=== PATIENT | female | born 1995 | race Caucasian/White ===

== ENCOUNTER 2017-08-18 09:20 | Emergency (ER) | payer MEDICAID, OTHER ==
[2017-08-18 11:11] LABS: URINE BLOOD (Dip) POC Negative (NEGATIVE); URINE GLUCOSE (Dip) POC Negative (NEGATIVE); URINE KETONES (Dip) POC Trace (NEGATIVE); URINE LEUKOCYTE EST (Dip) POC 1+ (NEGATIVE); URINE NITRITE (Dip) POC Negative (NEGATIVE); URINE TOTAL PROTEIN POC Negative (NEGATIVE)
[2017-08-18] MEDS: IBUPROFEN 600 MG TAB PO (11:13)
[2017-08-18 11:35] LABS: URINE BLOOD (Dip) POC Negative (NEGATIVE); URINE GLUCOSE (Dip) POC Negative (NEGATIVE); URINE KETONES (Dip) POC Negative (NEGATIVE); URINE LEUKOCYTE EST (Dip) POC 1+ (NEGATIVE); URINE NITRITE (Dip) POC Negative (NEGATIVE); URINE TOTAL PROTEIN POC Negative (NEGATIVE)
== END 2017-08-18 13:25 | disposition home or self-care (01) ==
LOC: FTE 09:20
DX: N39.0 Urinary tract infection, site not specified (principal)
CPT/HCPCS: 76856; 81003; 81025; 99284-25

== ENCOUNTER 2018-07-18 18:25 | Outpatient (CLI) | payer OTHER, MEDICAID | END 2018-07-18 22:39 | disposition home or self-care (01) | LOC: OBT 18:25 → L-D 18:26 → OBT 22:39 | DX: O47.1 False labor at or after 37 completed weeks of gestation (principal); Z3A.38 38 weeks gestation of pregnancy | CPT/HCPCS: 76818 ==

== ENCOUNTER 2018-07-19 05:31 | Inpatient (IN) | payer OTHER ==
[2018-07-19 07:13] LABS: ADD UMIC YES; UR ASCORBIC ACID NEGATIVE (NEGATIVE); UR BACTERIA FEW /HPF (NONE SEEN); UR BILIRUBIN (Dip) NEGATIVE (NEGATIVE); UR BLOOD (Dip) NEGATIVE (NEGATIVE); UR CLARITY CLEAR (CLEAR); UR COLOR YELLOW (YELLOW); UR GLUCOSE (Dip) NEGATIVE (NEGATIVE); UR KETONES (Dip) NEGATIVE (NEGATIVE); UR LEUKOCYTE ESTERASE (Dip) 1+ Leu/ul (NEGATIVE); UR NITRITE (Dip) NEGATIVE (NEGATIVE); UR RBC 0 /HPF (0-5); UR SPECIFIC GRAVITY (Dip) 1.008 (1.003-1.030); UR TOTAL PROTEIN (Dip) NEGATIVE (NEGATIVE); UR UROBILINOGEN (Dip) NEGATIVE (NEGATIVE); UR WBC 6 /HPF (0-5)
[2018-07-19 07:44] LABS: AMPHETAMINE/METHAMPHETAMINE Negative (NEGATIVE); BARBITURATES Negative (NEGATIVE); BENZODIAZEPINES Negative (NEGATIVE); COCAINE Negative (NEGATIVE); OPIATES Negative (NEGATIVE)
[2018-07-19 07:49] LABS: CANNABINOIDS Positive (NEGATIVE)
[2018-07-19] MEDS ORDERED: MISOPROSTOL 200 MCG TAB PR (10:00)
[2018-07-19] MEDS ORDERED: IBUPROFEN 600 MG TAB PO (10:00)
[2018-07-19] MEDS ORDERED: OXYTOCIN 30 UNITS/LR 500 ML IV ×3 (10:00)
[2018-07-19] MEDS ORDERED: CARBOPROST 250 MCG INJ IM (10:00)
[2018-07-19] MEDS ORDERED: METHYLERGONOVINE 0.2 MG INJ IM (10:00)
[2018-07-19] MEDS ORDERED: BUTORPHANOL 2 MG INJ IV (10:00)
[2018-07-19] MEDS ORDERED: LIDOCAINE 1% (MPF) 30 ML INJ INJ (10:00)
[2018-07-19 11:45] LABS: ADD MAN DIFF? NO
[2018-07-19 11:48] LABS: BASOPHILS % 0.5 % (0.0-2.0); EOSINOPHILS # 0.1 10^3/ul (0.0-0.5); EOSINOPHILS % 1.7 % (0.0-7.0); HEMATOCRIT 27.9 % (37.0-47.0); HEMOGLOBIN 8.6 g/dl (12.0-16.0); LYMPHOCYTES % 24.3 % (18.0-55.0); MEAN CORPUSCULAR HEMOGLOBIN 25.4 pg (29.0-33.0); MEAN CORPUSCULAR HGB CONC 30.8 g/dl (32.0-37.0); MEAN CORPUSCULAR VOLUME 82.3 fl (72.0-104.0); MONOCYTE # 0.5 10^3/ul (0.3-0.9); MONOCYTES % 6.2 % (0.0-13.0); NEUTROPHIL # 5.5 10^3/ul (1.6-7.5); NEUTROPHILS % 66.2 % (30.0-74.0); PLATELET COUNT 259 10^3/UL (140-415); RED BLOOD COUNT 3.39 10^6/ul (4.20-5.40); RED CELL DISTRIBUTION WIDTH 15.8 % (11.5-14.5)
[2018-07-19 11:48] LABS: WHITE BLOOD COUNT 8.3 10^3/ul (4.8-10.8)
[2018-07-19 12:10] LABS: INR 0.96; PARTIAL THROMBOPLASTIN TIME 28.9 Sec (23.0-35.0); PROTIME 12.9 Sec (11.9-14.9)
[2018-07-19] MEDS: LACTATED RINGER'S 1,000 ML IV ×2 (13:09→20:58)
[2018-07-19 14:27] LABS: HEPATITIS B SURFACE ANTIGEN NEGATIVE (NEGATIVE)
[2018-07-19 14:37] LABS: HIV 1&2 ANTIBODY NEGATIVE (NEGATIVE)
[2018-07-19] MEDS: AMPICILLIN 2 GM/NS (PMX) 100 ML IV (17:12)
[2018-07-19] MEDS: AMPICILLIN 1 GM/NS (PMX) 50 ML IV ×3 (18:00→22:00)
[2018-07-19 22:18] LABS: RAPID PLASMA REAGIN NONREACTIVE (NR)
[2018-07-20] MEDS: AMPICILLIN 1 GM/NS (PMX) 50 ML IV ×3 (01:02→09:03)
[2018-07-20] MEDS: LACTATED RINGER'S 1,000 ML IV ×2 (01:56→06:33)
== END 2018-07-20 16:00 | disposition home or self-care (01) | DRG 833 ==
LOC: OBT 05:31 → L-D 05:32 → OBT 08:10 → L-D 08:10
DX: O62.9 Abnormality of forces of labor, unspecified (principal); O09.33 Supervision of pregnancy with insufficient antenatal care, third trimester; O09.73 Supervision of high risk pregnancy due to social problems, third trimester; Z59.0 Homelessness; Z3A.38 38 weeks gestation of pregnancy
CPT/HCPCS: 76816; 80307; 81001; 85025; 85610; 85730; 86592; 86703; 86850; 86900; 86901; 87086; 87340

== ENCOUNTER 2018-07-30 17:18 | Inpatient (IN) | payer OTHER ==
[2018-07-30] MEDS ORDERED: CARBOPROST 250 MCG INJ IM (18:30)
[2018-07-30] MEDS ORDERED: OXYCODONE/ASPIRIN (4.88/325) TAB PO (18:30)
[2018-07-30] MEDS ORDERED: MISOPROSTOL 200 MCG TAB PR (18:30)
[2018-07-30] MEDS ORDERED: IBUPROFEN 600 MG TAB PO (18:30)
[2018-07-30] MEDS ORDERED: METHYLERGONOVINE 0.2 MG INJ IM (18:30)
[2018-07-30] MEDS ORDERED: LIDOCAINE 1% (MPF) 30 ML INJ INJ (18:30)
[2018-07-30] MEDS ORDERED: OXYTOCIN 30 UNITS/LR 500 ML IV (18:30)
[2018-07-30 18:42] LABS: ADD MAN DIFF? NO
[2018-07-30 18:45] LABS: WHITE BLOOD COUNT 9.6 10^3/ul (4.8-10.8)
[2018-07-30 18:45] LABS: BASOPHILS % 0.3 % (0.0-2.0); EOSINOPHILS # 0.1 10^3/ul (0.0-0.5); EOSINOPHILS % 1.3 % (0.0-7.0); HEMATOCRIT 30.8 % (37.0-47.0); HEMOGLOBIN 9.4 g/dl (12.0-16.0); LYMPHOCYTES # 1.8 10^3/ul (0.8-2.9); LYMPHOCYTES % 18.7 % (18.0-55.0); MEAN CORPUSCULAR HEMOGLOBIN 25.4 pg (29.0-33.0); MEAN CORPUSCULAR HGB CONC 30.5 g/dl (32.0-37.0); MEAN CORPUSCULAR VOLUME 83.2 fl (72.0-104.0); MEAN PLATELET VOLUME 12.1 fl (7.4-10.4); MONOCYTE # 0.7 10^3/ul (0.3-0.9); MONOCYTES % 7.2 % (0.0-13.0); NEUTROPHIL # 6.9 10^3/ul (1.6-7.5); NEUTROPHILS % 71.6 % (30.0-74.0); PLATELET COUNT 241 10^3/UL (140-415)
[2018-07-30 19:04] LABS: INR 0.95; PROTIME 12.8 Sec (11.9-14.9)
[2018-07-30 19:05] LABS: PARTIAL THROMBOPLASTIN TIME 28.1 Sec (23.0-35.0)
[2018-07-30 19:48] LABS: HEPATITIS B SURFACE ANTIGEN NEGATIVE (NEGATIVE)
[2018-07-30] MEDS: LACTATED RINGER'S 1,000 ML IV (20:22)
[2018-07-30] MEDS: BUTORPHANOL 2 MG INJ IV (20:30)
[2018-07-30] MEDS: AMPICILLIN 2 GM/NS (PMX) 100 ML IV (20:33)
[2018-07-31] MEDS: AMPICILLIN 1 GM/NS (PMX) 50 ML IV ×5 (00:33→17:21)
[2018-07-31] MEDS: BUTORPHANOL 2 MG INJ IV (01:01)
[2018-07-31 02:07] LABS: AMPHETAMINE/METHAMPHETAMINE Negative (NEGATIVE); BARBITURATES Negative (NEGATIVE); BENZODIAZEPINES Negative (NEGATIVE); CANNABINOIDS Positive (NEGATIVE); COCAINE Negative (NEGATIVE); OPIATES Negative (NEGATIVE)
[2018-07-31] MEDS: LACTATED RINGER'S 1,000 ML IV ×4 (03:57→12:27)
[2018-07-31] MEDS: ONDANSETRON 4 MG INJ IV (08:30)
[2018-07-31] MEDS ORDERED: FENTAnyl 2MCG/ML-ROPIV 0.2% 100 ML (09:43)
[2018-07-31] MEDS ORDERED: DIPHENHYDRAMINE 50 MG INJ IV (10:00)
[2018-07-31] MEDS ORDERED: ONDANSETRON 4 MG INJ IV (10:00)
[2018-07-31] MEDS ORDERED: NALOXONE (0.4 MG/ML) INJ IV (10:00)
[2018-07-31] MEDS: FENTAnyl 2MCG/ML-ROPIV 0.2% 100 ML BAG EPI ×2 (10:21→16:54)
[2018-07-31 11:48] LABS: RUBELLA ANTIBODY - IGG <0.90 index
[2018-07-31] MEDS: OXYTOCIN 30 UNITS/LR 500 ML IV ×3 (11:57→19:18)
[2018-07-31 12:38] LABS: RUBELLA ANTIBODY - IGM <20.00 AU/mL
[2018-07-31 18:07] LABS: RAPID PLASMA REAGIN NONREACTIVE (NR)
[2018-07-31] MEDS: MINERAL OIL LIGHT 10 ML VIAL TOP (18:56)
[2018-07-31] MEDS ORDERED: METHYLERGONOVINE 0.2 MG INJ IM (21:30)
[2018-07-31] MEDS ORDERED: LANOLIN HPA 1 PKT TOP (21:30)
[2018-07-31] MEDS ORDERED: DIBUCAINE 1% 30 GM OINT TOP (21:30)
[2018-07-31] MEDS ORDERED: ZOLPIDEM 5 MG TAB PO (21:30)
[2018-07-31] MEDS ORDERED: HYDROCODONE/APAP (5/325) TAB PO ×2 (21:30)
[2018-07-31] MEDS ORDERED: MISOPROSTOL 200 MCG TAB PR (21:30)
[2018-07-31] MEDS ORDERED: OXYTOCIN 30 UNITS/LR 500 ML IV (21:30)
[2018-07-31] MEDS ORDERED: CARBOPROST 250 MCG INJ IM (21:30)
[2018-07-31] MEDS: KETOROLAC 30 MG INJ IV (22:27)
[2018-07-31] MEDS: AZITHROMYCIN 500MG/NS (PMX) 250 ML IVPB (22:27)
[2018-07-31] MEDS: LACTATED RINGER'S 1,000 ML IV* (22:35)
[2018-08-01] MEDS: LACTATED RINGER'S 1,000 ML IV* ×3 (05:17→21:17)
[2018-08-01] MEDS: IBUPROFEN 600 MG TAB PO ×4 (05:19→17:29)
[2018-08-01] MEDS: CIPROFLOXACIN 500 MG TAB PO ×2 (05:20→17:29)
[2018-08-01 09:15] LABS: ADD MAN DIFF? NO
[2018-08-01 09:19] LABS: WHITE BLOOD COUNT 9.9 10^3/ul (4.8-10.8)
[2018-08-01 09:19] LABS: BASOPHILS % 0.3 % (0.0-2.0); EOSINOPHILS # 0.1 10^3/ul (0.0-0.5); HEMATOCRIT 30.5 % (37.0-47.0); HEMOGLOBIN 9.1 g/dl (12.0-16.0); LYMPHOCYTES # 2.3 10^3/ul (0.8-2.9); LYMPHOCYTES % 22.8 % (18.0-55.0); MEAN CORPUSCULAR HEMOGLOBIN 25.1 pg (29.0-33.0); MEAN CORPUSCULAR HGB CONC 29.8 g/dl (32.0-37.0); MEAN CORPUSCULAR VOLUME 84.3 fl (72.0-104.0); MEAN PLATELET VOLUME 12.9 fl (7.4-10.4); MONOCYTE # 0.7 10^3/ul (0.3-0.9); MONOCYTES % 6.7 % (0.0-13.0); NEUTROPHIL # 6.8 10^3/ul (1.6-7.5); NEUTROPHILS % 68.4 % (30.0-74.0); PLATELET COUNT 199 10^3/UL (140-415); RED BLOOD COUNT 3.62 10^6/ul (4.20-5.40); RED CELL DISTRIBUTION WIDTH 17.3 % (11.5-14.5)
[2018-08-01] MEDS: MAGNESIUM HYDROXIDE 30ML CUP PO ×2 (10:24→21:42)
[2018-08-01] MEDS: SENNA/DOCUSATE NA (8.6MG/50MG) TAB PO ×2 (10:24→21:42)
[2018-08-01] MEDS: WITCH HAZEL/GLYCERIN PAD PR (17:30)
[2018-08-01] MEDS: BENZOCAINE 20% 56 ML SPRAY TOP (17:30)
[2018-08-02] MEDS: IBUPROFEN 600 MG TAB PO ×4 (00:26→18:11)
[2018-08-02] MEDS: LACTATED RINGER'S 1,000 ML IV* (05:17)
[2018-08-02] MEDS: CIPROFLOXACIN 500 MG TAB PO ×2 (05:40→18:12)
[2018-08-02] MEDS: MAGNESIUM HYDROXIDE 30ML CUP PO (09:00)
[2018-08-02] MEDS: MEASLES,MUMPS,RUBELLA VACCINE INJ SC* (09:00)
[2018-08-02] MEDS: DIPHTH/TET/ACEL PERTUSS (ADULT) 0.5 ML VIAL IM* (09:00)
[2018-08-02] MEDS: VARICELLA VACCINE LIVE/PF 1,350 UNIT/0.5 ML ML SC* (09:00)
[2018-08-02] MEDS: SENNA/DOCUSATE NA (8.6MG/50MG) TAB PO (12:55)
== END 2018-08-02 19:00 | disposition home or self-care (01) | DRG 806 ==
LOC: OBT 17:18 → L-D 17:20 → PP1 07-31 20:46 → OBT 17:55 → L-D 17:55
PROVIDERS: Obstetrics & Gynecology
PROC: 10E0XZZ Delivery of Products of Conception, External Approach (ICD-10-PCS; principal; 2018-07-31)
PROC: 3E033VJ Introduction of Other Hormone into Peripheral Vein, Percutaneous Approach (ICD-10-PCS; 2018-07-31)
DX: O48.0 Post-term pregnancy (principal); O98.32 Other infections with a predominantly sexual mode of transmission complicating childbirth; Z37.0 Single live birth; O69.81X0 Labor and delivery complicated by cord around neck, without compression, not applicable or unspecified; A56.8 Sexually transmitted chlamydial infection of other sites; Z3A.40 40 weeks gestation of pregnancy
CPT/HCPCS: 62319; 80307; 85025; 85610; 85730; 86592; 86762; 86850; 86900; 86901; 87340; 90716